=== PATIENT | male | born 1935 | race Caucasian/White ===

== ENCOUNTER 2022-08-31 10:34 | Outpatient (CLI) | payer MEDICARE, OTHER ==
[~2022-08-31 10:34] MED LIST: Iopamidol 300 61% 100 ML VIAL FS ONE
== END 2022-08-31 10:35 | disposition home or self-care (01) ==
LOC: CSHCT 10:34
PROVIDERS: ATTEND Internal Medicine Hematology & Oncology
DX: C43.9 Malignant melanoma of skin, unspecified (principal); C78.01 Secondary malignant neoplasm of right lung; C79.31 Secondary malignant neoplasm of brain; G93.6 Cerebral edema
CPT/HCPCS: 70470; Q9967